=== PATIENT | male | born 1960 | race Two or more races ===

== ENCOUNTER 2021-12-15 10:45 | Outpatient (CLI) | payer OTHER | END 2021-12-15 10:59 | disposition home or self-care (01) | LOC: RAD 10:45 | PROVIDERS: ATTEND Surgery | DX: C18.5 Malignant neoplasm of splenic flexure (principal); R19.4 Change in bowel habit ==

== ENCOUNTER 2021-12-20 07:08 | Outpatient (CLI) | payer OTHER | END 2021-12-20 07:30 | disposition home or self-care (01) | LOC: TOM 07:08 | PROVIDERS: ATTEND Surgery | DX: C18.5 Malignant neoplasm of splenic flexure (principal); R19.4 Change in bowel habit ==

== ENCOUNTER 2021-12-23 12:15 | Inpatient (IN) | payer OTHER ==
[~2021-12-23] VITALS: Ht 180.3 cm; Wt 97.5 kg
[2021-12-23] MEDS ORDERED: AVAPRO75 MG PO (12:52)
[2022-01-03] MEDS ORDERED: PERCOCET 5-3251 EACH PO (11:46)
[2022-01-03] MEDS ORDERED: INTEGRA PLUS C1 EACH PO (11:47)
[2022-01-03] MEDS ORDERED: CIPRO100 MG PO (11:48)
[2022-01-03] MEDS ORDERED: METRONIDAZOLE500 MG PO (11:49)
== END 2022-01-03 13:03 | disposition home or self-care (01) | DRG 330 ==
LOC: ADM 12:15 → SURG 12-27 05:39 → O/R 12-27 05:39 → SURH 12-27 07:00 → CIR.AMB 12-27 12:15 → EDSTATUS 12-27 12:15 → SURG 12-27 15:07 → SURH 12-31 21:14
PROVIDERS: ADMIT Surgery; ATTEND Surgery
PROC: 0DBP0ZZ Excision of Rectum, Open Approach (ICD-10-PCS; 2021-12-27)
PROC: 07BC0ZZ Excision of Pelvis Lymphatic, Open Approach (ICD-10-PCS; 2021-12-27)
PROC: 0WQF0ZZ Repair Abdominal Wall, Open Approach (ICD-10-PCS; 2021-12-27)
PROC: 4A12X4Z Monitoring of Cardiac Electrical Activity, External Approach (ICD-10-PCS; 2021-12-27)
PROC: 0DTN0ZZ Resection of Sigmoid Colon, Open Approach (ICD-10-PCS; principal; 2021-12-27 07:00)
DX: C19 Malignant neoplasm of rectosigmoid junction (principal); K91.89 Other postprocedural complications and disorders of digestive system; K56.7 Ileus, unspecified; K43.2 Incisional hernia without obstruction or gangrene; R59.0 Localized enlarged lymph nodes; R19.4 Change in bowel habit; Z20.822 Contact with and (suspected) exposure to COVID-19; I11.9 Hypertensive heart disease without heart failure; R06.81 Apnea, not elsewhere classified

== ENCOUNTER 2022-01-04 19:04 | Emergency (ER) | payer OTHER ==
[~2022-01-04] VITALS: Ht 170.2 cm; Wt 97.5 kg
[~2022-01-04 19:04] MED LIST: AVAPRO75 MG PO; CIPRO100 MG PO; INTEGRA PLUS C1 EACH PO; METRONIDAZOLE500 MG PO; PERCOCET 5-3251 EACH PO
== END 2022-01-05 02:50 | disposition home or self-care (01) ==
LOC: ER 19:04
DX: R10.13 Epigastric pain (principal)

== ENCOUNTER 2022-02-03 05:50 | Day surgery (SDC) | payer OTHER ==
[~2022-02-03 05:50] MED LIST changes: +AVAPRO150 MG PO
[2022-02-03] MEDS ORDERED: ULTRACET PO (09:13)
== END 2022-02-03 13:39 | disposition home or self-care (01) ==
LOC: EDBD → CIR.AMB 05:50
PROVIDERS: ATTEND Surgery
DX: C18.5 Malignant neoplasm of splenic flexure (principal); Z20.822 Contact with and (suspected) exposure to COVID-19; I10 Essential (primary) hypertension

== ENCOUNTER 2022-02-04 08:08 | Outpatient (CLI) | payer OTHER ==
[~2022-02-04 08:08] MED LIST changes: +ULTRACET PO
== END 2022-02-04 08:27 | disposition home or self-care (01) ==
LOC: TOM 08:08
DX: C18.5 Malignant neoplasm of splenic flexure (principal); C18.6 Malignant neoplasm of descending colon

== ENCOUNTER 2023-03-08 07:21 | Outpatient (CLI) | payer OTHER | END 2023-03-08 07:31 | disposition home or self-care (01) | LOC: TOM 07:21 | PROVIDERS: ATTEND Internal Medicine Hematology & Oncology | DX: C18.5 Malignant neoplasm of splenic flexure (principal) | CPT/HCPCS: 71260; 74177; Q9965 ==

== ENCOUNTER 2025-05-15 11:00 | Day surgery (SDC) | payer OTHER ==
[2025-05-08 09:48] VITALS: BP 180/94
[2025-05-08 10:09] LABS: URINE APPEARANCE Clear; URINE BILIRRUBIN Negative (NEGATIVE); URINE BLOOD Trace; URINE COLOR Yellow; URINE GLUCOSE Negative (NEGATIVE); URINE KETONE Negative (NEGATIVE); URINE LEUKOCYTE Large; URINE NITRATE Negative; URINE PROTEIN Negative (NEGATIVE); URINE UROBILINOGEN 1.0 E.U./dl
[2025-05-08 10:13] LABS: URINE BACTERIA 2314.6 uL (0.0-1933); URINE EPITHELIAL CELLS 25.3 uL (0.0-38.8); URINE RBC 2.1 uL (0.0-20.8); URINE WBC 210.5 uL (0.0-23.2)
[2025-05-08 10:27] LABS: BASO % 0.3 % (0.1-1.2); EOS # 0.04 (0.04-0.54); EOS % 0.7 % (0.7-7.0); LYMPH # 1.35 (1.18-3.74); LYMPH % 22.7 % (19.3-53.1); MEAN PLATELET VOLUME 8.80 fl (9.4-12.4); MONO # 0.51 (0.24-0.82); MONO % 8.6 % (4.7-12.5); NEUT # 3.99 (1.56-6.13); NEUT % 67.2 % (34.0-71.1); RED CELL DISTRIBUTION WIDTH 13.0 % (11.6-14.4)
[2025-05-08 10:33] LABS: URINE CAST 0.00 uL (0.0-1.40)
[2025-05-08 10:51] LABS: INR 1.0
[2025-05-08 11:03] LABS: ALT/SGPT 35.0 U/L (12-78); AST/SGOT 25.0 U/L (15-37); BILIRUBIN TOTAL 0.87 mg/dL (0.3-1.2); BUN CREA RATIO 26.0 (7.0-25.0); CREATININE SERUM 0.77 mg/dL (0.70-1.30); GFR 102.37; GLOBULINA 3.5 G/DL (2.4-3.5); GLUCOSE FASTING 99.0 mg/dL (65-100); OSMOLALITY SERUM 278.0 MOSM/KG (275-295)
[~2025-05-15] VITALS: Ht 180.3 cm; Wt 108.9 kg
[2025-05-15] MEDS ORDERED: CEFAZOLIN SODIUM 1,000 MG VIAL ONE (12:38)
[2025-05-15] MEDS ORDERED: BUPIVACAINE HCL/MPF 0.5% 30ML VIAL ONE (12:38)
[2025-05-15] MEDS ORDERED: LIDOCAINE HCL 1%/EPINEPHRINE 20ML VIAL IJ ONE (12:38)
[2025-05-15] MEDS ORDERED: TRAM1TAB98 PO (13:29)
== END 2025-05-15 16:30 | disposition home or self-care (01) ==
LOC: CIR.AMB 11:00
PROVIDERS: ATTEND Surgery
DX: T82.594A Other mechanical complication of infusion catheter, initial encounter (principal); C18.5 Malignant neoplasm of splenic flexure